=== PATIENT | female | born 1950 | race Caucasian/White ===

== ENCOUNTER → 2025-03-17 10:46 | Outpatient (BNVA) | payer MEDICARE, MEDICAID, SELFPAY | PROVIDERS: PCP Nurse Practitioner Family; Referring Provider Nurse Practitioner Family; Visit Provider Internal Medicine Pulmonary Disease | DX: R06.00 Dyspnea, unspecified (principal); G47.33 Obstructive sleep apnea (adult) (pediatric); G35.D Multiple sclerosis, unspecified; F17.210 Nicotine dependence, cigarettes, uncomplicated | CPT/HCPCS: 99205 ==

== ENCOUNTER → 2025-04-18 10:45 | Outpatient (BNVA) | payer MEDICARE, MEDICAID, SELFPAY | PROVIDERS: PCP Nurse Practitioner Family; Referring Provider Nurse Practitioner Family; Visit Provider Internal Medicine Pulmonary Disease | DX: J44.9 Chronic obstructive pulmonary disease, unspecified (principal); G47.33 Obstructive sleep apnea (adult) (pediatric); G35.D Multiple sclerosis, unspecified; F17.210 Nicotine dependence, cigarettes, uncomplicated | CPT/HCPCS: 99214 ==

== ENCOUNTER 2025-04-26 01:41 | Outpatient (CLI) | payer MEDICARE, MEDICAID, SELFPAY ==
[2025-04-26] MEDS: Levalbuterol HFA 15 GM INH 4 PUFF IH (11:27)
[2025-04-26] MEDS: Inhaler, Assist Device 1 EACH MC (11:27)
--- NOTE | 2025-04-27 08:53 | W.PFT ---
Date of service: 04/26/25 Time of Service: 09:54 Pulmonary Function Test Result Indications: Multiple sclerosis Impression 1. Good patient effort was noted. ATS standards for reproducibility were met. 2. Spirometry showed moderate obstructive lung disease with an FEV1 of 71% (1.32 L) 3. Following the administration of a bronchodilator there was not a significant response 4. TLC and RV were elevated, suggestive of air trapping 5. DLCO was 73%, consistent with a mild defect in alveolar gas exchange. This was not corrected for Hemoglobin
== END 2025-04-26 01:42 | disposition home or self-care (01) ==
LOC: RT 01:41
PROVIDERS: PCP Nurse Practitioner Family; Visit Provider Internal Medicine Pulmonary Disease
DX: R06.00 Dyspnea, unspecified (principal); J44.9 Chronic obstructive pulmonary disease, unspecified; G35.D Multiple sclerosis, unspecified
CPT/HCPCS: 94060; 94726; 94729